=== PATIENT | male | born 1940 | race Caucasian/White ===

== ENCOUNTER 2022-01-13 16:55 | Observation (INO) ==
[2022-01-13 17:59] LABS: BASOPHILS % (AUTO) 0.6 % (0.2-1.0); HEMATOCRIT 41.8 % (42.0-54.0); HEMOGLOBIN 14.4 g/dL (13.5-18.0); LYMPHOCYTES # (AUTO) 0.8 X10^3/uL (1.3-2.9); LYMPHOCYTES % (AUTO) 11.7 % (21.0-51.0); MEAN CORPUSCULAR HEMOGLOBIN 30.2 pg (27.0-34.0); MEAN CORPUSCULAR HGB CONC 34.5 g/dL (33.0-35.0); MEAN CORPUSCULAR VOLUME 87.5 fL (80.0-100.0); MEAN PLATELET VOLUME 10.4 fL (7.4-11.0); MONOCYTES # (AUTO) 0.3 x10^3/uL (0.3-0.8); MONOCYTES % (AUTO) 4.5 % (0.0-13.0); NEUTROPHILS % (AUTO) 83.2 % (42.0-75.0); RED BLOOD COUNT 4.77 X10^6/uL (4.7-6.0); RED CELL DISTRIBUTION WIDTH 13.3 % (11.6-16.5); WHITE BLOOD COUNT 7.2 X10^3/uL (3.6-10.0)
[2022-01-13] MEDS ORDERED: PHARMACY CONSULT - IVERMECTIN XX SCH (18:00)
[2022-01-13] MEDS ORDERED: NS 1,000 ML IV 1,000 ML IV SCH (18:00)
[2022-01-13] MEDS ORDERED: VITAMIN D (1.25MG) PO ONE (18:00)
[2022-01-13 18:12] LABS: ALANINE AMINOTRANSFERASE 30 Units/L (12-78); ALBUMIN 3.8 g/dL (3.4-5.0); ALKALINE PHOSPHATASE 87 Units/L (46-116); ASPARTATE AMINO TRANSFERASE 12 Units/L (15-37); BLOOD UREA NITROGEN 25 mg/dL (7-18); CALCIUM 8.5 mg/dL (8.5-10.1); CHLORIDE 104 mmol/L (98-107); COR NA(FOR HYPERGLY) 139 mmol/L (136-145); CREATININE 1.72 mg/dL (0.70-1.30); SODIUM 139 mmol/L (136-145); TOTAL PROTEIN 7.7 g/dL (6.4-8.2); eGFR NON BLACK RACES 41 (>60)
--- NOTE | 2022-01-13 18:17 | RAD ---
HISTORYCOVID +, SOB Relevant Clinical InformationSTUDYCHEST, 1 VIEWCOMPARISONFINDINGSThe trachea is midline. The cardiac silhouette is unremarkable. Minimal basilar stranding suggestive of atelectasis. The lungs are otherwise clear without focal infiltrate or effusion. The bony thorax is unremarkable.IMPRESSIONMinimal dependent basilar atelectasis.Electronically signed by: Adriel Berrios (Jan 13, 2022 18:16:44)
[2022-01-13] MEDS: IVERMECTIN PO SCH (20:26)
[2022-01-13] MEDS: ZINC SULFATE PO SCH (20:26)
[2022-01-13] MEDS: ASCORBIC ACID INJ MULTI-DOSE VIAL 1,500 MG in NS 100 ML IV 100 ML IV SCH (20:27)
[2022-01-13] MEDS: VIBRAMYCIN PO SCH (20:27)
[2022-01-13] MEDS: PULMICORT NEB TX 0.5 MG NEB SCH (20:48)
[2022-01-13] MEDS: BROVANA IN SCH (20:48)
[2022-01-13] MEDS ORDERED: LOVENOX INJ 30 MG SYR SC SCH (21:00)
[2022-01-13] MEDS ORDERED: PEPCID TAB 40 MG PO SCH (21:00)
[2022-01-13] MEDS: SOLU-Medrol 40 MG VIAL IVP SCH (21:03)
[2022-01-13] MEDS: ZOSYN VIAL 3.375 GRAMS 3.375 G in NS 100 ML IV + SPIKE MINIBAG* 100 ML IV SCH (21:03)
[2022-01-13 22:34] VITALS: BMI 29.9
[2022-01-14] MEDS: ASCORBIC ACID INJ MULTI-DOSE VIAL 1,500 MG in NS 100 ML IV 100 ML IV SCH ×2 (03:15→09:09)
[2022-01-14 04:36] LABS: BASOPHILS % (AUTO) 0.1 % (0.2-1.0); HEMATOCRIT 38.8 % (42.0-54.0); HEMOGLOBIN 13.3 g/dL (13.5-18.0); LYMPHOCYTES # (AUTO) 0.6 X10^3/uL (1.3-2.9); LYMPHOCYTES % (AUTO) 10.8 % (21.0-51.0); MEAN CORPUSCULAR HEMOGLOBIN 29.8 pg (27.0-34.0); MEAN CORPUSCULAR HGB CONC 34.2 g/dL (33.0-35.0); MEAN CORPUSCULAR VOLUME 87.3 fL (80.0-100.0); MEAN PLATELET VOLUME 11.1 fL (7.4-11.0); MONOCYTES # (AUTO) 0.1 x10^3/uL (0.3-0.8); MONOCYTES % (AUTO) 1.8 % (0.0-13.0); NEUTROPHILS # (AUTO) 4.6 x10^3/uL (2.2-4.8); NEUTROPHILS % (AUTO) 87.3 % (42.0-75.0); RED BLOOD COUNT 4.44 X10^6/uL (4.7-6.0); RED CELL DISTRIBUTION WIDTH 13.4 % (11.6-16.5); WHITE BLOOD COUNT 5.3 X10^3/uL (3.6-10.0)
[2022-01-14 04:47] LABS: ALBUMIN 3.1 g/dL (3.4-5.0); CALCIUM 8.1 mg/dL (8.5-10.1); CARBON DIOXIDE 25.8 mmol/L (21-32); COR CA(FOR HYPOALB) 8.8 mg/dL (8.5-10.1); CREATININE 1.53 mg/dL (0.70-1.30); TOTAL PROTEIN 6.7 g/dL (6.4-8.2)
[2022-01-14] MEDS: SOLU-Medrol 40 MG VIAL IVP SCH (05:06)
[2022-01-14] MEDS: ZOSYN VIAL 3.375 GRAMS 3.375 G in NS 100 ML IV + SPIKE MINIBAG* 100 ML IV SCH (05:06)
--- NOTE | 2022-01-14 07:22 | RAD ---
HISTORYCOVID+, SOBSTUDYCHEST, 1 VIEWCOMPARISONOne day prior.TECHNIQUEAP view of the chestFINDINGSCardiac and mediastinal contours are within normal limits. Mild left base patchy opacity appears similar. Blunted costophrenic sulci. Low lung volumes. No pneumothorax. Soft tissue attenuation limits evaluation.IMPRESSIONPatchy left base opacity may represent atelectasis or pneumonia. Cannot exclude small pleural effusions.Electronically signed by: Jayy Wright (Jan 14, 2022 07:21:23)
[2022-01-14] MEDS: PULMICORT NEB TX 0.5 MG NEB SCH (08:10)
[2022-01-14] MEDS: BROVANA IN SCH (08:10)
[2022-01-14] MEDS ORDERED: TRICOR TAB 160 MG PO SCH (09:00)
[2022-01-14] MEDS ORDERED: PEPCID TAB 40 MG PO SCH (09:00)
[2022-01-14] MEDS: IVERMECTIN PO SCH (09:09)
[2022-01-14] MEDS: VIBRAMYCIN PO SCH (09:09)
[2022-01-14] MEDS: ZINC SULFATE PO SCH (09:10)
[2022-01-14 09:20] VITALS: BP 122/62
[2022-01-14] MEDS ORDERED: ZOSYN VIAL 3.375 GRAMS 3.375 G in NS 100 ML IV 100 ML IV SCH (14:00)
[2022-01-15] MEDS ORDERED: VITAMIN D3 125 mcg (5,000 UNITS) PO SCH (09:00)
[2022-01-15] MEDS ORDERED: VITAMIN A PO SCH (09:00)
--- NOTE | 2022-01-22 10:19 | DR.H&P ---
H&P History & Physical for Day of: H&P Date: 01/13/22 Chief Complaint Chief Complaint: Covid and weakness Allergies Allergies Allergy/AdvReac Type Severity Reaction Status Date / Time No Known Drug Allergies Allergy Verified 01/15/22 13:55 History of Present Illness History of Present Illness: This is a pleasant 81 year old white male. He has recently been diagnosed Covid-19 in the last week but is not recovering fast from it. He is weak and not eating or drinking much since getting sick he reports. His daughter asked Narayan Mullins, Nurse Practitioner if he could be admitted for further treatment and evaluation at [facility]. So I was called and I went ahead and directed Admitted him for further evaluation and treatment. Past Medical History Past Medical History: Dyslipidemia, GERD and Hypertension Past Surgical History Surgical History: Appendectomy, Bowel Resection and Other Family History Family Medical History: Diabetes Mellitus and Hypertension Social History Does patient currently use any type of tobacco product: Yes Have you used tobacco products in the last 12 months: Yes Type of Tobacco Use: Smokeless How many years tobacco product used: 70 Does any household member use tobacco: Yes Alcohol Use: None Drug Use: None Medications Home Medications: No Known Drug Allergies Allergy (Verified 01/15/22 13:55) CONTINUE taking the following medications donepezil 5 mg PO HS 01/13/22 [History] doxycycline hyclate 100 mg PO BID 01/13/22 [History] esomeprazole magnesium 40 mg PO DAILY 01/13/22 [History] fluticasone propionate 1 spray INTRANASAL DAILY 01/13/22 [History] metoprolol ta-hydrochlorothiaz 1 tab PO DAILY 01/13/22 [History] potassium chloride 20 meq PO BID 01/13/22 [History] simvastatin 40 mg PO HS 01/13/22 [History] tamsulosin 0.4 mg PO DAILY 01/13/22 [History] New Prescriptions albuterol sulfate 2 puff INHALATION Q6H PRN #1 g 01/14/22 [Rx] doxycycline hyclate 100 mg PO BID 9 Days #18 cap 01/14/22 [Rx] methylprednisolone [Medrol (Efraín)] See Rx Instructions .ROUTE .COMPLEX #1 ea 01/14/22 [Rx] Labs Result Diagrams: 01/14/22 04:20 01/14/22 04:20 Labs: Laboratory WBC 5.3 X10^3/uL (3.6-10.0) 01/14/22 04:20 RBC 4.44 X10^6/uL (4.7-6.0) L 01/14/22 04:20 Hgb 13.3 g/dL (13.5-18.0) L 01/14/22 04:20 Hct 38.8 % (42.0-54.0) L 01/14/22 04:20 MCV 87.3 fL (80.0-100.0) 01/14/22 04:20 MCH 29.8 pg (27.0-34.0) 01/14/22 04:20 MCHC 34.2 g/dL (33.0-35.0) 01/14/22 04:20 RDW 13.4 % (11.6-16.5) 01/14/22 04:20 Plt Count 74 X10^3/uL (150.0-450.0) L 01/14/22 04:20 MPV 11.1 fL (7.4-11.0) H 01/14/22 04:20 Neut % (Auto) 87.3 % (42.0-75.0) H 01/14/22 04:20 Lymph % (Auto) 10.8 % (21.0-51.0) L 01/14/22 04:20 [place] % (Auto) 1.8 % (0.0-13.0) 01/14/22 04:20 Eos % (Auto) 0.0 % (0.9-2.9) L 01/14/22 04:20 Baso % (Auto) 0.1 % (0.2-1.0) L 01/14/22 04:20 Neut # (Auto) 4.6 x10^3/uL (2.2-4.8) 01/14/22 04:20 Lymph # (Auto) 0.6 X10^3/uL (1.3-2.9) L 01/14/22 04:20 [place] # (Auto) 0.1 x10^3/uL (0.3-0.8) L 01/14/22 04:20 Eos # (Auto) 0.0 x10^3/uL (0.0-0.2) 01/14/22 04:20 Baso # (Auto) 0.0 X10^3/uL (0.0-0.1) 01/14/22 04:20 Absolute Nucleated RBC 0.2 /100WBC 01/14/22 04:20 ESR 32 MM/HOUR (0-15) H 01/13/22 17:50 Sodium 141 mmol/L (136-145) 01/14/22 04:20 Corrected Sodium 142 mmol/L (136-145) 01/14/22 04:20 Potassium 4.0 mmol/L (3.5-5.1) 01/14/22 04:20 Chloride 106 mmol/L (98-107) 01/14/22 04:20 Carbon Dioxide 25.8 mmol/L (21-32) 01/14/22 04:20 BUN 26 mg/dL (7-18) H 01/14/22 04:20 Creatinine 1.53 mg/dL (0.70-1.30) H 01/14/22 04:20 Est GFR (MDRD) Af Amer 56 (>60) L 01/14/22 04:20 Est GFR (MDRD) Non-Af 47 (>60) L 01/14/22 04:20 Glucose 150 mg/dL (65-99) H 01/14/22 04:20 POC Glucose (mg/dL) 149 mg/dL (65-99) H 01/13/22 20:19 Calcium 8.1 mg/dL (8.5-10.1) L 01/14/22 04:20 Corrected Calcium 8.8 mg/dL (8.5-10.1) 01/14/22 04:20 Total Bilirubin 0.50 mg/dL (0.2-1.0) 01/14/22 04:20 AST 12 Units/L (15-37) L 01/14/22 04:20 ALT 31 Units/L (12-78) 01/14/22 04:20 Alkaline Phosphatase 73 Units/L (46-116) 01/14/22 04:20 C-Reactive Protein 57.80 mg/L (0-3.0) H 01/14/22 04:20 Total Protein 6.7 g/dL (6.4-8.2) 01/14/22 04:20 Albumin 3.1 g/dL (3.4-5.0) L 01/14/22 04:20 Globulin 3.6 g/dL (2.5-4.5) 01/14/22 04:20 Albumin/Globulin Ratio 0.9 Ratio (1.1-2.1) L 01/14/22 04:20 Review of Systems Constitutional: Weakness Eyes: No Symptoms Reported ENT: No Symptoms Reported Respiratory: Cough and SOB with Excertion Cardiovascular: No Symptoms Reported Gastrointestinal: No Symptoms Reported Genitourinary: No Symptoms Reported Musculoskeletal: No Symptoms Reported Skin: No Symptoms Reported Neurological: No Symptoms Reported Physical Exam Vital Signs: Temperature 97.7 F Pulse Rate [Left] 71 Pulse Rate 71 Respiratory Rate 25 Blood Pressure [Left Arm] 173/75 Blood Pressure 122/62 O2 Sat by Pulse Oximetry 99 Oriented: Normal, Time, Person and Place Eyes: Normal Ear: Normal Nose: Normal Throat: Normal Respiratory: Clear Throughout Cardiovascular: Normal : Normal Auscultation: Bowel Sounds: Normal Palpation: Normal Tenderness: Normal Skin: Normal Musculoskeletal: Normal Psychiatric: Normal Mood Description: Calm Affect: Normal Speech Pattern: Clear and Appropriate Assessment/Plan (1) COVID-19 virus infection: Status: Acute Plan: Covid- 19 protocol. The patient will receive IV antibiotics as well as getting jet nebs with budesonide and albuterol and he will also received IV Solu-Medrol. (2) Weakness: Status: Acute Plan: Check CMP, CBC, chest x-ray and urinalysis. (3) Anorexia: Status: Acute Plan: Monitor intake. Review H&P Reviewed: Yes Patient was examined?: Yes
--- NOTE | 2022-01-22 10:51 | PCM.DCPLAN ---
DISCHARGE SUMMARY Admission Date Date of Admission: 01/13/22 Discharge Date Discharge Date: 01/14/22 Admission Diagnoses (1) COVID-19 virus infection: Status: Acute (2) Weakness: Status: Acute (3) Anorexia: Status: Acute Discharge Diagnoses Discharge Diagnosis: 1. Covid-19 2. Dehydration- improved 3. Anorexia-mild 4. Weakness-stable. Discharge Medications Discharge Medications: Home Medication List donepezil 5 mg PO HS 01/13/22 [History] doxycycline hyclate 100 mg PO BID 01/13/22 [History] esomeprazole magnesium 40 mg PO DAILY 01/13/22 [History] fluticasone propionate 1 spray INTRANASAL DAILY 01/13/22 [History] metoprolol ta-hydrochlorothiaz 1 tab PO DAILY 01/13/22 [History] potassium chloride 20 meq PO BID 01/13/22 [History] simvastatin 40 mg PO HS 01/13/22 [History] tamsulosin 0.4 mg PO DAILY 01/13/22 [History] albuterol sulfate 2 puff INHALATION Q6H PRN #1 g 01/14/22 [Rx] doxycycline hyclate 100 mg PO BID 9 Days #18 cap 01/14/22 [Rx] methylprednisolone [Medrol (Efraín)] See Rx Instructions .ROUTE .COMPLEX #1 ea 01/14/22 [Rx] Prescriptions: albuterol sulfate DIEGO WRIGHT doxycycline hyclate DIE[place] WRIGHT methylprednisolone [Medrol (Efraín)] DIEGO WRIGHT Hospital Course Vital Signs: Temperature 97.7 F Pulse Rate [Left] 71 Pulse Rate 71 Respiratory Rate 25 Blood Pressure [Left Arm] 173/75 Blood Pressure 122/62 O2 Sat by Pulse Oximetry 99 Latest Lab Results: Laboratory Last Values WBC 5.3 X10^3/uL (3.6-10.0) 01/14/22 04:20 RBC 4.44 X10^6/uL (4.7-6.0) L 01/14/22 04:20 Hgb 13.3 g/dL (13.5-18.0) L 01/14/22 04:20 Hct 38.8 % (42.0-54.0) L 01/14/22 04:20 MCV 87.3 fL (80.0-100.0) 01/14/22 04:20 MCH 29.8 pg (27.0-34.0) 01/14/22 04:20 MCHC 34.2 g/dL (33.0-35.0) 01/14/22 04:20 RDW 13.4 % (11.6-16.5) 01/14/22 04:20 Plt Count 74 X10^3/uL (150.0-450.0) L 01/14/22 04:20 MPV 11.1 fL (7.4-11.0) H 01/14/22 04:20 Neut % (Auto) 87.3 % (42.0-75.0) H 01/14/22 04:20 Lymph % (Auto) 10.8 % (21.0-51.0) L 01/14/22 04:20 [place] % (Auto) 1.8 % (0.0-13.0) 01/14/22 04:20 Eos % (Auto) 0.0 % (0.9-2.9) L 01/14/22 04:20 Baso % (Auto) 0.1 % (0.2-1.0) L 01/14/22 04:20 Neut # (Auto) 4.6 x10^3/uL (2.2-4.8) 01/14/22 04:20 Lymph # (Auto) 0.6 X10^3/uL (1.3-2.9) L 01/14/22 04:20 [place] # (Auto) 0.1 x10^3/uL (0.3-0.8) L 01/14/22 04:20 Eos # (Auto) 0.0 x10^3/uL (0.0-0.2) 01/14/22 04:20 Baso # (Auto) 0.0 X10^3/uL (0.0-0.1) 01/14/22 04:20 Absolute Nucleated RBC 0.2 /100WBC 01/14/22 04:20 ESR 32 MM/HOUR (0-15) H 01/13/22 17:50 Sodium 141 mmol/L (136-145) 01/14/22 04:20 Corrected Sodium 142 mmol/L (136-145) 01/14/22 04:20 Potassium 4.0 mmol/L (3.5-5.1) 01/14/22 04:20 Chloride 106 mmol/L (98-107) 01/14/22 04:20 Carbon Dioxide 25.8 mmol/L (21-32) 01/14/22 04:20 BUN 26 mg/dL (7-18) H 01/14/22 04:20 Creatinine 1.53 mg/dL (0.70-1.30) H 01/14/22 04:20 Est GFR (MDRD) Af Amer 56 (>60) L 01/14/22 04:20 Est GFR (MDRD) Non-Af 47 (>60) L 01/14/22 04:20 Glucose 150 mg/dL (65-99) H 01/14/22 04:20 POC Glucose (mg/dL) 149 mg/dL (65-99) H 01/13/22 20:19 Calcium 8.1 mg/dL (8.5-10.1) L 01/14/22 04:20 Corrected Calcium 8.8 mg/dL (8.5-10.1) 01/14/22 04:20 Total Bilirubin 0.50 mg/dL (0.2-1.0) 01/14/22 04:20 AST 12 Units/L (15-37) L 01/14/22 04:20 ALT 31 Units/L (12-78) 01/14/22 04:20 Alkaline Phosphatase 73 Units/L (46-116) 01/14/22 04:20 C-Reactive Protein 57.80 mg/L (0-3.0) H 01/14/22 04:20 Total Protein 6.7 g/dL (6.4-8.2) 01/14/22 04:20 Albumin 3.1 g/dL (3.4-5.0) L 01/14/22 04:20 Globulin 3.6 g/dL (2.5-4.5) 01/14/22 04:20 Albumin/Globulin Ratio 0.9 Ratio (1.1-2.1) L 01/14/22 04:20 Hospital Course: Physical 81-year-old white male who was admitted to the hospital for increasing weakness, dehydration from a recent of 19 infections. According to his nurse practitioner Narayan Mullins patient has just been slowly going downhill over the last few days he does not feel well and feeling very weak overall. He was admitted to the hospital and started on covert 19 protocol. He received IV doxycycline and Zosyn for his antibiotics are concerned. He was also started on Pepcid along with fenofibrate, vitamin C and zinc. We also gave him Ivermectin 27 mg by mouth. He also got Solu-Medrol as well. He has some mild dehydration coming but after a night of IV fluid it improved the following morning. Overall the next morning the patient looked better. Reported feeling better the next morning. Because of this I would discharge him home in stable condition. Instructions Instructions: Fall Prevention in the Home, Adult, [id number] Antibiotic Medicine, Adult, [id number] 10 Things You Can Do to Manage Your COVID-19 Symptoms at Home - [facility] (05/15/2020) COVID-19 COVID-19: How to Protect Yourself and Others - [facility] Hypertension, Adult, [id number] COVID-19: What to Do if You Are Sick - [facility] (11/14/2020) Forms: Precautions for COVID19 [facility] Social Distancing
== END 2022-01-14 11:07 | disposition home or self-care (01) ==
LOC: ICU
PROVIDERS: ADMIT Family Medicine; ATTEND Family Medicine
DX: R70.0 Elevated erythrocyte sedimentation rate; R53.1 Weakness; R79.82 Elevated C-reactive protein (CRP); E11.65 Type 2 diabetes mellitus with hyperglycemia; K21.9 Gastro-esophageal reflux disease without esophagitis; U07.1 COVID-19; E86.0 Dehydration; R06.02 Shortness of breath; R63.0 Anorexia; I10 Essential (primary) hypertension; E78.2 Mixed hyperlipidemia